=== PATIENT | male | born 1990 | race African-American/Black ===

== ENCOUNTER 2016-06-01 03:01 | Emergency (ER) | payer BC, OTHER ==
[~2016-06-01] VITALS: Ht 165.1 cm; Wt 68.2 kg
[~2016-06-01 03:01] MED LIST: NAPR-260 PO
[2016-06-01 03:06] VITALS: Ht 165.1 cm; Wt 68.2 kg
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
== END 2016-06-01 03:22 | disposition home or self-care (01) ==
LOC: E/R 03:01
DX: S09.93XA Unspecified injury of face, initial encounter (principal); S00.12XA Contusion of left eyelid and periocular area, initial encounter; Y08.89XA Assault by other specified means, initial encounter